=== PATIENT | female | born 1980 | race Caucasian/White ===

== ENCOUNTER 2025-08-13 03:16 | Day surgery (SDC) | payer OTHER, SELFPAY ==
--- OUTSIDE RECORDS SUMMARY | 2015-11-20 05:00 | XMS_ITS | Continuity of Care Document ---
Author Organization [employer] Address [address] [place] [address] Phone Care Team Providers Care Drafting Technician Name Role Phone Suyapa Ayala MD Unavailable Unavailable Allergies, Adverse Reactions, Alerts Substance Reaction Status Criticality No Known Allergies Active No Inform ation Medications Medication Instructions Dosage Effective Dates (start - stop) Status Comments ibuprofen 200 mg tablet take 4-5 tablet by oral route every 6 hours as needed with food - Active Vitamin D3 1,000 unit tablet take 1 tablet by mouth once daily - Active Probiotic 10 billion cell capsule take 1 capsule by mouth once daily - Active multivitamin tablet take 1 tablet by ora l route every day with food - Active protein oral powder ML Perfect Protein (Vanilla) 1 scoop after workout - Active green tea extract powder ML Max Greens 1 scoop after workout - Active Results Test Name Date and Time Measure Units Reference Range Abnormal Flag Status Comments Panel Description: Lipid Panel- Final Cholesterol . 12:02:33 180 mg/dL 0-200 Final Performed by:[facility] ([facility]) HDL,D. 12:02:33 32 mg/dL 40-120 L Final Performed by:[facility] ([facility]) Triglycerid e. 12:02:33 186 mg/dL 0-150 H Final Performed by:[facility] ([facility]) Chol/HDL. 12:02:33 5.6 Ratio 3.7-6.7 Final Performed by:[facility] ([facility]) LDLC. 12:02:33 110 md/dL 0-130 Final Performed by:[facility] ([facility]) Panel Description: TSH Final TSH. 12:02:33 1.51 uIU/mL 0.35-4.94 Final Performed by:[facility] ([facility]) Advance Directives Directive Yes / No Effective Date File Name No Information Encounters Encounter Description Practice Location Reason(s) For Visit Diagnoses Date Provider Providers Copied on Encounter [facility] [address], [place], [place], [id number], tel:[phone] Castella Vasovagal syncopePost conc[facility]. [address] [place] [address], [facility], . tel:[phone] Referring Provider: Suyapa Ayala, [address] [place] [address], [facility]. tel:[phone] Family History Family Member Type Diagnosis Age At Onset Mother Problem (finding) diabetes melli tus in first degree relative Mother Problem (finding) depression Mother Problem (finding) Allergies Mother Problem (finding) stroke Sister Problem (finding) Allergies Father Problem (finding) Obesity Father Problem (finding) Allergies Payers Payer name Insurance type Covered green party ID Authoriza tislime(s) [facility] [id number] Social History Type Description Quantity Date Captured Comments Alcohol Use Details Caffeine Use Details Unknown Tobacco Use Status No Information Smoking Status Never smoker Sex Female Vital Signs Date / Time: Height Weight BMI Pulse Rate Blood Pressure Temperature Respiratory Rate Body Surface Area Head Circumference Head Circ. Percentile Wt./Janak. Percentile BMI percentile Pulse Ox Inhaled Ox 11:10 AM 64.50 in 107.955 kg (238.00 lbs) 40.2 2 kg/m eter (2) 64 /min 112/68 mm[Hg] Chief Complaint And Reason For Visit No Information Reason For Referral Reason For Referral No Information History Of Present Illness Encounter Date Complaint History Of Prese nt Illness No Information Functional Status Date Functional Assessmen t No Information Medications Administered Medication Instructions Dosage Effective Dates (start - stop) Status Comments No Drug Therapy Prescribed Instructions Date Instruction Additional Infor mation No Information Assessments Type Assessment Date No Information Patient Care Teams Name Effective Dates (start - stop) Status Members No Information
[2025-08-05 14:32] VITALS: BMI 45.4
--- NOTE | 2025-08-05 15:03 | PC.NURSE ---
[facility] has started construction of its new state of the art ER which will open Spring 2026. With this, we anticipate parking may be a challenge for some our surgical patients and families. Parking spaces are limited but are available for all Surgical, obstetrics, and ER patients sharing this lot. If you arrive and find you are having a hard time finding a parking space, please note that we understand the challenges, please drive around the hospital and park near Hospital Entrance 1. When you enter this entrance, you can ask a volunteer to direct or take you back to the surgical waiting area to check in. We appreciate everyone?s understanding of these expected challenges while we build for your future. Report to the Outpatient Waiting Room, entrance under the green pavilion located off [address], at 1100 on 08-13-25. Planned Procedure Time: 1300.? Time changes happen often and if your time is changed the preop area will call you the afternoon before. - You and your visitor will be asked to self-screen and do not enter if you have any COVID symptoms. Please call surgeon if you need to reschedule. - A mask is optional within the hospital at this time. Patients may have clear liquids (water, carbonated beverages, clear teas, apple juice) until 3 hours prior to surgery with a maximum of 20 ounces. 1000 - No food from midnight until time of surgery and no smoking, or chewing tobacco (or any form of nicotine). No chewing gum, candy or mints. - Infants may have breast milk until 4 hours before surgery, formula 6 hours prior to surgery. - Children will be allowed to drink immediately following surgery.? If applicable, please bring a bottle or sippy cup to assist with drinking. Juice, water, soda, and popsicles are readily available.? For infants on formula, please bring formula the day of surgery.? Pacifiers are allowed. Take only the following medications with a SIP of water on the morning of surgery: Tylenol if needed DO NOT STOP ANY OF YOUR OTHER PRESCRIPTION MEDICATIONS PRIOR TO SURGERY EXCEPT THE FOLLOWING Hold all vitamins and supplements for 3 days per anesthesiologist. (08-11-25) Medications to discontinue per physician: ibuprofen Date to take last dose: Per Dr. Cheney Please no make-up, nail telugu, hairspray, perfume, deodorant, or body powder the day of surgery.? No jewelry (including any body piercings) or valuables the day of surgery, leave them at home.? Please take a shower or bath the night before, or the morning of, surgery with an antibacterial soap.? Wear comfortable, loose fitting clothing.? Children are encouraged to wear pajamas. - Jewelry must be removed prior to entering the operating room.? Rings and piercings that are not removed may be cut off. - The hospital will not accept responsibility for valuables.? - Please leave all valuables, including medications, at home the day of surgery. If you are going home after surgery, a licensed regional refrigerated cdl truck driver must drive you home.? - NO public transportation without another adult if you receive anesthesia. - We recommend that an adult stay with you for 24 hours following discharge. - We also recommend that you do not drive, make important decision, drink alcoholic beverages, or take any drugs that were not prescribed by your health care provider for at least 24 hours after your discharge time. For Pediatric surgeries, we recommend two adults accompany the child home. Follow any additional instructions given to you from your surgeon. Telephone instructions given to Karen Lyman and asked if any additional questions and then verbalized understanding. Patient advised to call surgeon office or pre surgery nurse liaison [phone] if any additional questions.
[2025-08-13] VITALS (8 sets, daily range): BP systolic 124–139; BP diastolic 64–90; PULSE 73–90; RESP 11–16; TEMP 36.1–36.4; O2SAT 98–100; BMI 45.6
--- OUTSIDE RECORDS SUMMARY | 2025-08-13 03:19 | XMS_ITS | Clinical Summary ---
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 Gender Identity Not on file Sexual Orientation Not on file Plan of Treatment Health Maintenance Due Date Last Done Comments Cervical Cancer Screening Pa p Smear (Age 30 to 64) Every 3 Years 1982 Annual Physical 1985 Hepatitis C 2000 DTaP, Tdap and Td Vaccines ( 1 - Tdap) 2001 Hepatitis B Vaccines (1 of 3 - 19+ 3-dose series) 2001 HPV Vaccines (1 - 3-dose SCD M series) 2009 Cervical Cancer Screening Pa p with HPV Testing (Age 30 to 64) Every 5 Years 2012 Cervical Cancer Screening wi HPV 2012 Mammogram Screening 2022 COVID-19 Vaccine (2024-2 6 season) 2025 09/07/2021, 01/13/2021, 12/23/2020 Influenza Adult (#1) 2025 Hepatitis A Vaccines Aged Out No long er eligible based on patient's age to complete this topic Meningococcal B Vaccine Aged Out No l onger eligible based on patient's age to complete this topic Meningococcal Vaccine Aged Out No gatito shay eligible based on patient's age to complete this topic Pneumococcal Vaccine: Pediatrics (0 to 5 Years) and At-Risk Patients (6 to 49 Years) Aged Out No longer eligible b ased on patient's age to complete this topic RSV Immunizations Under 20 Months Aged Out No longer eligible b ased on patient's age to complete this topic Insurance [employer] Care Teams Telecom Assistant Relationship Specialty Start Date End Date Tonie Coburn DO PCP - General FAMILY PRACTICE 05/30/24
--- NOTE | 2025-08-13 10:36 | PM.HPGS ---
History of Present Illness History of Present Illness Consent: Risks, benefits, and alternatives have been discussed and questions answered. Patient agrees to proceed with procedure. Chief complaint: sterilization, embedded IUD Narrative: Karen Anguiano is a 44 year old female presented the office as a new patient to discuss IUD removal and perimenopausal symptoms. Patient reports has IUD for a while this is her second one and was wanting it removed and to have permanent sterilization instead. Review of Systems Review of Systems: All systems reviewed & are unremarkable except as noted in HPI and below PMFSH Surgical History Surgical History (Updated 08/13/25 @ 10:43 by Khai Cheney MD) Previous back surgery Social History Social History Smoking status: Never smoker Second hand tobacco smoke exposure: No Alcohol intake: current Alcohol use details: Socially a few times a month Substance use: current Substance use type: marijuana Other substance usage details: gummies for sleep sometimes Living arrangements: with family Spiritual care concerns: No Meds Home Medications and Allergies Home Medications ?Medication ?Instructions ?Recorded ?Confirmed ?Type acetaminophen 325 mg tablet (Pain 650 mg PO Q6H PRN pain 08/05/25 08/05/25 History Reliever (acetaminophen)) cholecalciferol (vitamin D3) 50 2,000 unit PO DAILY 08/05/25 08/05/25 History mcg (2,000 unit) tablet (Thera-D) echinacea 400 mg capsule 400 mg PO DAILY 08/05/25 08/05/25 History lactobacillus combo no.11 15 1 cap PO DAILY 08/05/25 08/05/25 History billion cell sprinkle capsule (Probiotic) levonorgestrel-ethinyl estradiol 1 tablet PO HS 08/05/25 08/05/25 History 0.1 mg-20 mcg tablet (Vienva) multivit,Ca,mlx-qhsf-TG-caff-guarana 1 tablet PO 08/05/25 History 18 mg iron-400 mcg-180 mg tablet (One-A-Day Women's Active) omega-3 360 xa-qfr-qro-fish oil 1 cap PO DAILY 08/05/25 08/05/25 History 1,200 mg capsule,delayed release (Fish Oil) vitamin B comp and C no.3 15 mg-10 1 cap PO DAILY 08/05/25 08/05/25 History mg-50 mg-5 mg-300 mg capsule (B Complex Plus Vitamin C) Allergies Allergy/AdvReac Type Severity Reaction Status Date / Time No Known Allergies Allergy Verified 08/05/25 14:21 Vital Signs weight 269 ht 67in BMI 42.1 bp 130/72 p88 Exam Const: General: cooperative, no acute distress, awake and obese Resp: Effort & Inspection: normal respiratory effort : External Female Exam: normal external appearance Speculum Exam - Vagina: normal appearance of the vagina Speculum Exam - Cervix: normal appearance of the cervix and Nulliparous cervix present Bimanual exam- vagina & uterus: normal bimanual exam, normal palpation and consistency normal Results Results US - pelvic: image reviewed (embedded IUD ) Assessment and Plan Assessment and plan (1) Request for sterilization: Code(s): Z30.2 - Encounter for sterilization Status: Acute (2) Attempted IUD removal, unsuccessful: Code(s): Z30.432 - Encounter for removal of intrauterine contraceptive device Status: Acute Plan Scheduled for a laparoscopy with bilateral salpingectomy and IUD removal with Hysteroscopy. Risk, benefits and alternatives reviewed with patient in detail including just continuing with alternative control. Patient reports desires sterilization.
[2025-08-13] MEDS: LACTATED RINGERS 1,000 ML 30 ML IV CONT ×2 (11:30→14:20)
[2025-08-13] MEDS: KETOROLAC 15 MG/ML VIAL (*BKC) IV PUSH (11:33)
[2025-08-13] MEDS: ACETAMINOPHEN 500 MG TABLET 1000 MG PO (11:33)
--- NOTE | 2025-08-13 13:07 | WPDANESEPPF ---
Anes - Initial Pre Proc Eval Procedure: Operation Date: 08/13/25 13:00 Proposed Procedures p Laparoscopic Bilateral Salpingectomy, Hysteroscopy, Removal Embedded Intrauterine Device - Khai Cheney MD Date/Time: 08/13/25 13:07 Surgeon: Khai Cheney MD Pre Op Diagnosis: sterilization, embedded IUD Patient Data Age: 44 Gender: F Height: 1.63 m Weight: 120.5 kg Last Vital Signs Temp 36.1 C L 08/13/25 11:05 Pulse 87 08/13/25 11:05 Resp 16 08/13/25 11:05 BP 139/90 08/13/25 11:05 Pulse Ox 98 08/13/25 11:05 O2 Del Method Room Air 08/13/25 11:05 Allergies Allergy/AdvReac Type Severity Reaction Status Date / Time No Known Allergies Allergy Verified 08/13/25 11:20 Home Medications ?Medication ?Instructions ?Recorded ?Confirmed ?Type acetaminophen 325 mg tablet (Pain 650 mg PO Q6H PRN pain 08/05/25 08/05/25 History Reliever (acetaminophen)) cholecalciferol (vitamin D3) 50 2,000 unit PO DAILY 08/05/25 08/13/25 History mcg (2,000 unit) tablet (Thera-D) echinacea 400 mg capsule 400 mg PO DAILY 08/05/25 08/13/25 History lactobacillus combo no.11 15 1 cap PO DAILY 08/05/25 08/13/25 History billion cell sprinkle capsule (Probiotic) levonorgestrel-ethinyl estradiol 1 tablet PO HS 08/05/25 08/05/25 History 0.1 mg-20 mcg tablet (Vienva) multivit,Ca,mgx-jeku-CQ-caff-guarana 1 tablet PO 08/05/25 History 18 mg iron-400 mcg-180 mg tablet (One-A-Day Women's Active) omega-3 360 jj-bgm-ota-fish oil 1 cap PO DAILY 08/05/25 08/13/25 History 1,200 mg capsule,delayed release (Fish Oil) vitamin B comp and C no.3 15 mg-10 1 cap PO DAILY 08/05/25 08/13/25 History mg-50 mg-5 mg-300 mg capsule (B Complex Plus Vitamin C) Patient hx anesthesia problems: none Family hx anesthesia problems: none Results Review: All pre-operative results and documents have been reviewed as part of the pre-operative evaluation. [facility] Surgical History Surgical History Previous back surgery Social History Social History Smoking status: Never smoker Second hand tobacco smoke exposure: No Alcohol intake: current Alcohol use details: Socially a few times a month Substance use: current Substance use type: marijuana Other substance usage details: gummies for sleep sometimes Living arrangements: with family Spiritual care concerns: No Anes - Eval Final PreProcedure Day of Procedure 08/13/25 13:07 Patient weight: super morbidly obese Heart: regular rate and rhythm Lungs: clear to auscultation Airway: Mallampati scale class II Neurological: alert and oriented Last oral intake: >/= 8 hours ASA classification: III Emergent: no Anesthetic plan: proceed Anesthesia type and monitoring: general ETT and standard monitoring Results Review: All pre-operative results and documents have been reviewed as part of the pre-operative evaluation. Informed Consent: The patient's anesthetic plan and its attendant risks and benefits were discussed with the patient/family/POA. Questions were solicited and answers provided to the satisfaction of the patient/family/POA.
--- NOTE | 2025-08-13 13:20 | WPDHPUPDATE1 ---
History and Physical Update Update Date/Time: 08/13/25 13:20 History and Physical has been reviewed, including an updated exam of the patient. There are NO changes in the patient's condition. Risks, benefits, and alternatives have been discussed and questions answered. Patient agrees to proceed with procedure.
[2025-08-13] MEDS: LIDOCAINE 1% LOCAL INJ 10 ML VIAL 20 ML INFILTRATE (14:00)
--- NOTE | 2025-08-13 14:01 | S_PTH ---
PATIENT: Karen Nicole LOC: [facility] U#:[id number] AGE/SX: 44/F ROOM: RE08/13/[address]: Khai Cheney MD : 1980 BED: DIS: 08/13/2025 SPEC #: [id number] RECD: 08/14/25 07:45 STATUS: FILOMENA REQ #: [id number] CRISTY: 08/13/25 14:[address]: Khai Cheney DEPT: [facility] Surgical RECD BY: Kim Vicente ENTERED: 08/14/25 07:46 SP TYPE: Surgical OTHR DR: SCRAPPER PHYSICIAN Tissues: A - Fallopian Tube Bilateral Procedures: Gross and Microscopic Level 2 Hematoxylin and Eosin Stain
--- NOTE | 2025-08-13 14:15 | PM.OP ---
Procedure Note - Brief Procedure Note - Brief Date of procedure: 08/13/25 sterilization, embedded IUD Post-op diagnosis: Same Procedure performed: Laparoscopy with bilateral salpingectomy Surgeon: Khai Cheney MD Anesthesia: GLMA Description of procedure: Laparoscopic salpingectomy bilateral. Iud removal with polyp forceps intact. Estimated blood loss (mL): 10 Urine output (mL): 100 Drains: No Packing: No Pathology: Yes Complications: No immediate complications Condition: Stable Disposition: Same day
--- NOTE | 2025-08-13 14:18 | W.PM.PROC2 ---
Procedure Note - Detailed Date of Procedure 08/13/25 Pre-op Diagnosis sterilization, embedded IUD Post-op Diagnosis Same Procedure Performed laparoscopy with bilateral salpingectomy and IUD removal Surgeon Khai Cheney MD Anesthesia General Findings grossly normal tubes and ovaries. fibroid uterus. endometrial implants. right ovarian cyst Description of Procedure The patient was taken to the operating room and the general anesthetic was administered. She was then positioned in the dorsal lithotomy position and prepped and draped in the normal sterile fashion. Once the anesthetic was found to be adequate, a bimanual exam was performed under anesthetic. Bladder was drained with straight catheter. A speculum was then placed in the vagina. The interior wall of vagina elevated with the uterine sound and the anterior lip of the cervix was grasped with the tenaculum. At this point, the uterine manipulator was placed in the cervix and attached to the anterior cervix and vulsellum tenaculum and weighted speculum were removed. Next, attention was then turned to the abdomen. The surgeons all are removed the dirty gloves in the previous portion of the case. The inferior aspect of the umbilicus was injected with lidocaine. a 0.5 cm incision was made. the Veress needle was inserted and connected to the CO2 gas which was started at its lowest setting. The gas was seen to flow freely with normal resistance, so the CO2 gas was advanced to a higher setting. The abdomen was insufflated to an adequate distension. Once an adequate distention was reached, the CO2 gas was disconnected. The Veress needle was removed and a size #5mm was placed. The introducer was removed and the trocar was connected to the CO2 gas and a camera was inserted. Next a size #5 port was placed in the right and left lower quadrant under direct visualization. The tube was grasped with grasper and the Ligasure was used to ligate and transect the right tube from the broad ligament. Attention was then turned to the left tube and the same procedure performed removing the left tube. 3 cm serous cyst noted on left ovary cystotomy was performed cleared fluid drained. Endometrial implants noted in the posterior culdesac. Hemostasis was assured. the instruments and camera were removed and the abdomen deflated. the incision were closed with 4- monocryl and bandages placed. attention turned to the vagina, the uterine manipulator was removed and the speculum inserted. A polyp forcep grasper was used to enter the uterine cavity and the IUD was removed intact. hemostasis assured. sponge lap and needle counts were correct x2. the patient tolerated procedure well and was taken to recovery in stable condition. Estimated Blood Loss 10 Urine Output 100 Drains No Packing No Pathology Yes Complications No immediate complications Condition Stable Disposition Same day
[2025-08-13] MEDS: HYDROmorphone HCL INJ (*CRX) 1 MG/ML SYR 0.25 MG IV PUSH (14:50)
[2025-08-13] MEDS: oxyCODONE HCL (*CRX) 5 MG TAB IR PO (15:49)
== END 2025-08-13 16:25 | disposition home or self-care (01) ==
PROVIDERS: Visit Provider Obstetrics & Gynecology
PROC: 0UDB8ZZ Extraction of Endometrium, Via Natural or Artificial Opening Endoscopic (ICD-10-PCS; CPT 58558; principal; 2025-08-13 13:00)
DX: Z30.2 Encounter for sterilization (principal); Z30.432 Encounter for removal of intrauterine contraceptive device; D25.9 Leiomyoma of uterus, unspecified; N83.201 Unspecified ovarian cyst, right side; N80.329 Endometriosis of the posterior cul-de-sac, unspecified depth; F12.90 Cannabis use, unspecified, uncomplicated; E66.01 Morbid (severe) obesity due to excess calories; Z68.42 Body mass index [BMI] 45.0-49.9, adult
CPT/HCPCS: 58661; 58301; 58662; 88302; A9270; J1100; J1171; J1885; J2003; J2250; J2405; J2704; J3010; J7120